=== PATIENT | male | born 1985 | race Caucasian/White ===

== ENCOUNTER → 2020-02-07 19:11 | Outpatient (REF) | payer OTHER, SELFPAY | LOC: HO.SL 19:11 | PROVIDERS: PCP Nurse Practitioner Family; Visit Provider Nurse Practitioner Family | DX: G47.33 Obstructive sleep apnea (adult) (pediatric) (principal); R06.83 Snoring | CPT/HCPCS: 95810 ==

== ENCOUNTER 2020-02-18 08:35 | Outpatient (REF) | payer OTHER, SELFPAY ==
[2020-02-18 12:18] LABS: Anion Gap 13 (12-20); Blood Urea Nitrogen 13 mg/dL (9-16); Calcium 9.2 mg/dL (8.4-10.2); Carbon Dioxide 27 mmol/L (22-29); Chloride 105 mmol/L (96-108); Cholesterol 190 mg/dL; Estimated Glomerular Filt Rate > 60; Glucose Random 78 mg/dL (60-115); HDL Cholesterol 45 mg/dL; LDL Cholesterol Calculated 130 mg/dl; Potassium 4.5 mmol/l (3.3-5.1); Sodium 140 mmol/L (135-145); Triglycerides 79 mg/dL
[2020-02-18 12:24] LABS: TSH reflex Free T4 1.21 mIU/mL (0.32-4.0); Vitamin D 25-OH Total 11.3 ng/mL (>30)
== END 2020-02-18 08:36 | disposition home or self-care (01) ==
LOC: HO.HMGCLDS 08:35
PROVIDERS: PCP Nurse Practitioner Family; Visit Provider Nurse Practitioner Family
DX: Z00.00 Encounter for general adult medical examination without abnormal findings (principal)
CPT/HCPCS: 80048; 80061; 82306; 84443

== ENCOUNTER → 2020-03-21 08:11 | Outpatient (BNVA) | payer OTHER, SELFPAY | PROVIDERS: Visit Provider Nurse Practitioner Family | DX: Z76.89 Persons encountering health services in other specified circumstances (principal) ==

== ENCOUNTER 2020-08-17 13:45 | Outpatient (REF) | payer OTHER, SELFPAY ==
[2020-08-18 07:46] LABS: HIV AB/AG Nonreactive (Nonreactive); HIV Num 1 0.08 S/CO (0.00-0.99)
== END 2020-08-17 13:46 | disposition home or self-care (01) ==
LOC: HO.HMGCLDS 13:45
PROVIDERS: PCP Nurse Practitioner Family; Visit Provider Nurse Practitioner Family
DX: Z11.4 Encounter for screening for human immunodeficiency virus [HIV] (principal)
CPT/HCPCS: 36415; 87389

== ENCOUNTER 2020-08-22 15:18 | Outpatient (REF) | payer OTHER, SELFPAY ==
--- NOTE | ~2020-08-22 | US_ITS ---
EXAMINATION: US ABDOMEN LIMITED CLINICAL INFORMATION: Unspecified abdominal pain. COMPARISON: None TECHNIQUE: Real-time imaging of the area indicated by the patient, to the left of the umbilicus. FINDINGS: No significant abdominal wall hernia. No abdominal wall mass or fluid collection. No abnormal inflammatory change. US/US abdomen limited IMPRESSION: Unremarkable examination.
== END 2020-08-22 15:19 | disposition home or self-care (01) ==
LOC: HO.HMGCX 15:18
PROVIDERS: PCP Nurse Practitioner Family; Visit Provider Nurse Practitioner Family
DX: R10.9 Unspecified abdominal pain (principal)
CPT/HCPCS: 76705

== ENCOUNTER 2020-11-20 10:40 | Outpatient (REF) | payer OTHER, SELFPAY ==
[2020-11-20 14:58] LABS: MANUAL DIFF FLAG NO
[2020-11-20 15:04] LABS: Basophils Absolute Auto 0.1 X10*3/uL (0.0-0.2); Basophils Percent Auto 1.1 % (0-2); Eosinophils Absolute Auto 0.2 X10*3/uL (0.0-0.4); Eosinophils Percent Auto 3.3 % (0-4); Hematocrit 47.1 % (42-52); Hemoglobin 14.7 g/dl (14.0-18.0); Imm Gran Abs Auto 0.02 X10*3/uL (0.00-0.03); Imm Gran Pct Auto 0.3 % (0.0-0.4); Lymphocytes Absolute Auto 2.6 X10*3/uL (1.2-4.9); Lymphocytes Percent Auto 37.1 % (20-40); Mean Corpuscular HGB Conc 31.2 g/dl (31.0-36.0); Mean Corpuscular Hemoglobin 28.3 pg (27.0-33.0); Mean Corpuscular Volume 90.8 fL (80-98); Monocytes Absolute Auto 0.4 X10*3/uL (0.1-1.2); Neutrophils Absolute Auto 3.7 X10*3/uL (2.0-8.3); Neutrophils Percent Auto 52.2 % (45-73); Platelet Count 479 X10*3/uL (160-400); Red Blood Count 5.19 X10*6/uL (4.60-5.80); Red Cell Distribution Width 16.1 % (11.0-16.0)
[2020-11-20 15:17] LABS: Alanine Aminotransferase 25 U/L (0-40); Albumin Level 4.6 g/dL (3.5-5.0); Alkaline Phosphatase 40 U/L (39-117); Anion Gap 13 (12-20); Aspartate Amino Transferase 34 U/L (5-37); Bilirubin Total 1.1 mg/dL (0.0-1.0); Blood Urea Nitrogen 13 mg/dL (9-16); Calcium 9.5 mg/dL (8.4-10.2); Carbon Dioxide 27 mmol/L (22-29); Chloride 105 mmol/L (96-108); Estimated Glomerular Filt Rate > 60; Glucose Random 75 mg/dL (60-115); Potassium 4.6 mmol/L (3.3-5.1); Sodium 140 mmol/L (135-145); Total Protein 7.8 g/dL (6.5-8.0)
[2020-11-21 12:41] LABS: Follicle Stimulating Hormone 1.8 mIU/mL (1.6-8.0); Lutenizing Hormone 1.5 mIU/mL (1.5-9.3)
[2020-11-25 13:56] LABS: Testosterone, Total 120 ng/dL (250-1100)
== END 2020-11-20 10:41 | disposition home or self-care (01) ==
LOC: HO.HMGCLDS 10:40
PROVIDERS: PCP Nurse Practitioner Family; Visit Provider Nurse Practitioner Family
DX: R68.82 Decreased libido (principal)
CPT/HCPCS: 36415; 80053; 83001; 83002; 84402; 84403; 85025

== ENCOUNTER 2021-02-28 08:56 | Outpatient (REF) | payer OTHER, SELFPAY ==
[2021-02-28 11:29] LABS: MANUAL DIFF FLAG NO
[2021-02-28 11:31] LABS: Basophils Absolute Auto 0.1 X10*3/uL (0.0-0.2); Basophils Percent Auto 0.8 % (0-2); Eosinophils Absolute Auto 0.2 X10*3/uL (0.0-0.4); Eosinophils Percent Auto 3.2 % (0-4); Hematocrit 49.1 % (42-52); Hemoglobin 15.7 g/dl (14.0-18.0); Imm Gran Abs Auto 0.04 X10*3/uL (0.00-0.03); Imm Gran Pct Auto 0.5 % (0.0-0.4); Lymphocytes Percent Auto 39.4 % (20-40); Mean Corpuscular Hemoglobin 29.1 pg (27.0-33.0); Mean Corpuscular Volume 90.9 fL (80-98); Mean Platelet Volume 9.3 fL (9.4-12.4); Monocytes Absolute Auto 0.5 X10*3/uL (0.1-1.2); Monocytes Percent Auto 6.3 % (2-11); Neutrophils Absolute Auto 3.8 X10*3/uL (2.0-8.3); Neutrophils Percent Auto 49.8 % (45-73); Platelet Count 560 X10*3/uL (160-400); Red Cell Distribution Width 15.5 % (11.0-16.0); White Blood Count 7.6 X10*3/uL (4.8-10.8)
[2021-03-01 18:32] LABS: Sex Hormone Binding Globulin 5 nmol/L (10-50)
[2021-03-02 17:45] LABS: Follicle Stimulating Hormone 1.7 mIU/mL (1.6-8.0); Lutenizing Hormone 1.2 mIU/mL (1.5-9.3); Prolactin 4.9 ng/mL (2.0-18.0)
[2021-03-05 12:11] LABS: Testosterone, Free 48.5 pg/mL (35.0-155.0); Testosterone, Total 155 ng/dL (250-1100)
== END 2021-02-28 08:57 | disposition home or self-care (01) ==
LOC: HO.HMGCLDS 08:56
PROVIDERS: Absent Provider Nurse Practitioner Family; PCP Nurse Practitioner Family; Visit Provider Urology
DX: E29.1 Testicular hypofunction (principal); D47.3 Essential (hemorrhagic) thrombocythemia; R79.89 Other specified abnormal findings of blood chemistry
CPT/HCPCS: 36415; 83001; 83002; 84146; 84270; 84402; 84403; 85025; 99202

== ENCOUNTER → 2021-03-16 08:54 | Outpatient (BNVA) | payer OTHER, SELFPAY | PROVIDERS: Visit Provider Urology ==

== ENCOUNTER 2021-04-02 12:06 | Outpatient (REF) | payer OTHER, SELFPAY ==
--- NOTE | ~2021-04-02 | XR_ITS ---
EXAMINATION: XR CHEST CLINICAL INFORMATION: Dyspnea. COMPARISON: None TECHNIQUE: 2 views of the chest were obtained. FINDINGS: No significant abnormality is noted involving the heart, lungs, mediastinum, bony thorax or soft tissues. XR/XR chest 2V IMPRESSION: Unremarkable chest exam
== END 2021-04-02 12:07 | disposition home or self-care (01) ==
LOC: HO.HMGCX 12:06
PROVIDERS: Visit Provider Nurse Practitioner Family
DX: R06.89 Other abnormalities of breathing (principal)
CPT/HCPCS: 71046

== ENCOUNTER 2021-04-16 09:36 | Outpatient (REF) | payer OTHER, SELFPAY ==
--- NOTE | ~2021-04-16 | MR_ITS ---
EXAMINATION: MR LUMBAR SPINE WITHOUT CONTRAST CLINICAL INFORMATION: 35-year-old with complaints of low back pain and bilateral leg pain. Persisting despite physical therapy and injections. COMPARISON: 06/04/2019 MRI TECHNIQUE: MRI of the lumbar spine was obtained using routine sequences without contrast. FINDINGS: Coronal Alignment: Normal. Sagittal Alignment: Normal. Lumbosacral Junction: Normal. Vertebral Bodies: Normal height. Disc Spaces and Endplates: Moderate disc space height loss and disc desiccation noted at L4-L5 and L5-S1 with mild disc space height loss and disc desiccation at L3-L4. Endplates appear intact. Spinal Canal: No abnormal developmental findings. Bone Marrow: No significant marrow-replacing process or bone marrow edema. Conus Medullaris: Terminates at T12-L1. Morphology and signal is normal. Intradural Nerve Roots: Within normal limits. L5-S1: Mild disc bulging is noted with a superimposed central to left paramedian disc herniation with an annular fissure, stable in appearance, with mild flattening of the dural sac, stable in appearance. No significant facet arthrosis, canal or neural foraminal stenosis. L4-L5: Diffuse disc bulging is noted. A previously noted central to right subarticular disc herniation appears diminished in size with only minimal residual on current study, with [id number] narrowing of the right subarticular zone improved from previous study. Minor facet arthrosis is noted bilaterally, stable in appearance, without significant central spinal canal stenosis. A right foraminal component to the above-described disc herniation is again noted which contributes to moderate right-sided neural foraminal stenosis similar to the previous exam slightly encroaching on the exiting right L4 nerve root, unchanged. L3-L4: There is a right paramedian to subarticular disc herniation similar in appearance to the previous exam with moderate flattening of the dural sac asymmetric to the right, with moderate narrowing of the right subarticular zone, stable in appearance. Mild central spinal canal narrowing is stable. No significant facet arthropathy. Small inferior foraminal component to the disc protrusion on the right resulting in mild right-sided foraminal narrowing stable in appearance, which contacts the exiting right L3 nerve root, unchanged in appearance. L2-L3: Small right paramedian disc protrusion noted with mild indentation of the ventral thecal sac on the right without significant facet arthrosis, canal or neural foraminal stenosis, which is a new finding from previous study. L1-L2: Small central to right paramedian disc protrusion, stable in appearance, without significant canal or neural foraminal stenosis. T12-L1: Normal disc contour. No significant facet arthrosis, canal or neural foraminal stenosis. T11-T12: No disc bulge or herniation and no significant facet arthrosis, canal or neural foraminal stenosis, unchanged in appearance. Paraspinal/Retroperitoneal: The paravertebral soft tissues appear unremarkable. MR/MR lumbar spine wo con IMPRESSION: 1. Multilevel discogenic degenerative changes between L3-L4 and L5-S1 inclusive similar in appearance to the previous exam. 2. Multilevel disc bulging and disc herniations as detailed above, improved on the right at L4-L5 and stable on the right at L3-L4 and stable centrally and to the left of midline at L5-S1 with a new small right paracentral disc herniation at L2-L3. Stable small central to right paramedian disc protrusion at L1-L2. 3. Stable mild central spinal canal stenosis at L3-L4 with right subarticular recess stenosis at this level, unchanged in appearance. Slightly improved appearance to the right subarticular zone at L4-L5.
== END 2021-04-16 09:37 | disposition home or self-care (01) ==
LOC: HO.MRI 09:36
PROVIDERS: PCP Nurse Practitioner Family; Visit Provider Nurse Practitioner Family
DX: M51.26 Other intervertebral disc displacement, lumbar region (principal); M54.16 Radiculopathy, lumbar region
CPT/HCPCS: 72148

== ENCOUNTER 2021-04-18 09:21 | Outpatient (REF) | payer OTHER, SELFPAY ==
--- NOTE | ~2021-04-18 | CT_ITS ---
EXAMINATION: CT CHEST WITHOUT CONTRAST CLINICAL INFORMATION: Hemoptysis COMPARISON: Previous chest x-ray March 2021 TECHNIQUE: Multidetector volumetric CT imaging of the chest was done. Axial MIP volume rendering provided. Sagittal and coronal reformatted images were obtained. This CT examination was performed using dose optimization techniques as appropriate, variously including the following: *Automated exposure control *Adjustment of mA and/or kV according to patient size (this includes techniques or standardized protocols for targeted exams where dose is matched to indication/reason for exam; i.e. extremities or head) *Use of iterative reconstruction technique DLP: 177 mGy-cm FINDINGS: HOOP CUTTER: Unremarkable LUNGS: There is minimal subsegmental atelectasis at the lung bases. The lungs are otherwise clear. No endobronchial or endotracheal lesion is seen. MEDIASTINUM: The mediastinum is normal. PLEURA: There is no pleural effusion. No pleural mass or thickening. AXILLA: No lymphadenopathy. There is asymmetric right gynecomastia. UPPER ABDOMEN: There may be diverticulosis of the colon. OSSEOUS STRUCTURES: There are mild degenerative changes of the spine. CT/CT chest wo con IMPRESSION: No cause of hemoptysis seen. Asymmetric right gynecomastia. Fleischner guidelines were followed.
== END 2021-04-18 09:22 | disposition home or self-care (01) ==
LOC: HO.CT 09:21
PROVIDERS: Visit Provider Nurse Practitioner Family
DX: R04.2 Hemoptysis (principal)
CPT/HCPCS: 71250

== ENCOUNTER 2021-05-22 09:43 | Outpatient (REF) | payer OTHER, SELFPAY ==
[2021-05-23 10:15] LABS: Lutenizing Hormone 7.7 mIU/mL (1.5-9.3)
[2021-05-27 09:56] LABS: Testosterone, Free 173.6 pg/mL (35.0-155.0); Testosterone, Total 650 ng/dL (250-1100)
== END 2021-05-22 09:44 | disposition home or self-care (01) ==
LOC: HO.HMGCLDS 09:43
PROVIDERS: Urology; Visit Provider Nurse Practitioner Family
DX: E29.1 Testicular hypofunction (principal); R79.89 Other specified abnormal findings of blood chemistry
CPT/HCPCS: 36415; 83001; 83002; 84402; 84403

== ENCOUNTER → 2021-05-23 09:03 | Outpatient (BNVA) | payer OTHER, SELFPAY | PROVIDERS: Visit Provider Urology ==

== ENCOUNTER 2021-09-14 09:30 | Outpatient (REF) | payer OTHER, SELFPAY ==
[2021-09-14 11:11] LABS: MANUAL DIFF FLAG NO
[2021-09-14 11:13] LABS: Appearance Urine CLEAR; Color Urine YELLOW; Glucose Urine UA NEG (NEG); Leukocyte Esterase Urine NEG (NEG); Nitrite Urine NEG (NEG); Specific Gravity - Urine 1.025 (1.005-1.025); Urine Blood NEG (NEG); Urine Ketones NEG (NEG); Urine Protein TRACE MG/DL (NEG-TRACE)
[2021-09-14 11:25] LABS: Basophils Absolute Auto 0.1 X10*3/uL (0.0-0.2); Basophils Percent Auto 0.8 % (0-2); Eosinophils Absolute Auto 0.2 X10*3/uL (0.0-0.4); Eosinophils Percent Auto 2.3 % (0-4); Hematocrit 51.6 % (42.0-52.0); Hemoglobin 16.4 g/dl (14.0-18.0); Imm Gran Abs Auto 0.03 X10*3/uL (0.00-0.03); Imm Gran Pct Auto 0.4 % (0.0-0.4); Lymphocytes Absolute Auto 2.9 X10*3/uL (1.2-4.9); Mean Corpuscular HGB Conc 31.8 g/dl (31.0-36.0); Mean Corpuscular Hemoglobin 29.1 pg (27.0-33.0); Mean Corpuscular Volume 91.7 fL (80.0-98.0); Mean Platelet Volume 9.8 fL (9.4-12.4); Monocytes Absolute Auto 0.5 X10*3/uL (0.1-1.2); Monocytes Percent Auto 6.5 % (2-11); Neutrophils Absolute Auto 3.8 x10*3/uL (2.0-8.3); Platelet Count 371 X10*3/uL (160-400); Red Blood Count 5.63 X10*6/uL (4.60-5.80); Red Cell Distribution Width 16.3 % (11.0-16.0); White Blood Count 7.5 X10*3/uL (4.8-10.8)
[2021-09-14 11:39] LABS: Alanine Aminotransferase 33 U/L (0-40); Albumin Level 4.4 g/dL (3.5-5.0); Alkaline Phosphatase 34 U/L (39-117); Anion Gap 14 (12-20); Aspartate Amino Transferase 30 U/L (5-37); Bilirubin Total 0.8 mg/dL (0.0-1.0); Blood Urea Nitrogen 13 mg/dL (9-16); Calcium 9.4 mg/dL (8.4-10.2); Carbon Dioxide 24 mmol/L (22-29); Chloride 108 mmol/L (96-108); Cholesterol 225 mg/dL; Estimated Glomerular Filt Rate > 60; Glucose Fasting 79 mg/dL (60-99); HDL Cholesterol 29 mg/dL; LDL Cholesterol Calculated 179 mg/dl; Potassium 4.7 mmol/L (3.3-5.1); Sodium 141 mmol/L (135-145); Total Protein 7.3 g/dL (6.5-8.0); Triglycerides 87 mg/dL
[2021-09-14 11:50] LABS: Ferritin 93 ng/mL (20-250)
[2021-09-14 12:01] LABS: TSH reflex Free T4 1.16 uIU/mL (0.32-4.0)
[2021-09-15 16:07] LABS: Follicle Stimulating Hormone 4.9 mIU/mL (1.6-8.0); Lutenizing Hormone 3.5 mIU/mL (1.5-9.3)
[2021-09-21 01:06] LABS: Testosterone, Total 517 ng/dL (250-1100)
== END 2021-09-14 09:31 | disposition home or self-care (01) ==
LOC: HO.HMGCLDS 09:30
PROVIDERS: Absent Provider Internal Medicine Medical Oncology; PCP Nurse Practitioner Family; Visit Provider Urology
DX: Z00.00 Encounter for general adult medical examination without abnormal findings (principal); D47.3 Essential (hemorrhagic) thrombocythemia; E23.0 Hypopituitarism
CPT/HCPCS: 36415; 80053; 80061; 81003; 82728; 83001; 83002; 84402; 84403; 84443; 85025

== ENCOUNTER → 2021-09-20 08:32 | Outpatient (BNVA) | payer OTHER, SELFPAY | PROVIDERS: PCP Nurse Practitioner Family; Visit Provider Urology | DX: Z13.89 Encounter for screening for other disorder (principal) ==

== ENCOUNTER 2022-04-12 09:31 | Outpatient (REF) | payer OTHER, SELFPAY ==
[2022-04-21 23:03] LABS: Estradiol Ultra Sensitive 40 pg/mL (< OR = 29)
== END 2022-04-12 09:32 | disposition home or self-care (01) ==
LOC: HO.HMGCLDS 09:31
PROVIDERS: PCP Nurse Practitioner Family; Visit Provider Urology
DX: E23.0 Hypopituitarism (principal)
CPT/HCPCS: 36415; 82670

== ENCOUNTER → 2022-05-01 11:42 | Outpatient (BNVA) | payer OTHER, SELFPAY | PROVIDERS: PCP Nurse Practitioner Family; Visit Provider Urology | DX: Z13.89 Encounter for screening for other disorder (principal) ==

== ENCOUNTER → 2022-05-01 11:42 | Outpatient (BNVA) | payer OTHER, SELFPAY | PROVIDERS: PCP Nurse Practitioner Family; Visit Provider Urology ==